=== PATIENT | female | born 1960 | race Caucasian/White ===

== ENCOUNTER 2023-04-21 13:44 | Emergency (ER) | payer MEDICARE ==
[~2023-04-21] VITALS: Ht 154.9 cm; Wt 79.4 kg
[2023-04-21 13:51] VITALS: BP 161/101
[2023-04-21] MEDS ORDERED: HYDR1TAB94 PO (14:55)
== END 2023-04-21 14:58 | disposition home or self-care (01) ==
LOC: ER 13:44
DX: S42.202A Unspecified fracture of upper end of left humerus, initial encounter for closed fracture (principal); W11.XXXA Fall on and from ladder, initial encounter
CPT/HCPCS: 73060; 99283-25; A9270

== ENCOUNTER 2024-01-06 08:38 | Day surgery (SDC) | payer MEDICARE ==
[2024-01-06] VITALS (15 sets, daily range): BP systolic 91–118; BP diastolic 64–98
[~2024-01-06] VITALS: Ht 152.4 cm; Wt 78.8 kg
[~2024-01-06 08:38] MED LIST: HYDR1TAB94 PO; Lactated Ringer's 1,000 ML IV SCH
[2024-01-06] MEDS ORDERED: propofoL 40 ML IV ONE (09:57)
--- NOTE | 2024-01-06 10:08 | NUR ---
01/06/24 Avel8 aJmes Nunes CONFIRMED AND REVIEWED H&P, MEDCICATIONS, ALLERGIES, MEDICAL HISTORY, RESPIRATORY HISTORY, VITAL SIGNS, 3-LEAD EKG, CONSENTS, AND PHYSICIAN ORDERS. PATIENT CONFIRMS NPO STATUS AND AGREES WITH SCHEDULED PROCEDURE. MONITOR INTACT WITH CONTINUOUS PULSE OXIMETRY, CAPNOGRAPHY, 3-LEAD EKG, INTERMITTENT BP. SUPPLEMENTAL O2 TO BE TITRATED THROUGHOUT PROCEDURE TO MAINTAIN O2 SATURATION ABOVE 90%. PATIENT DETERMINED TO BE ASA APPROPRIATE FOR PROPOFOL SEDATION PRIOR TO START OF PROCEDURE BY DR. SAUCEDO.
--- NOTE | 2024-01-06 10:57 | NUR ---
Patient up to Ambulate independently. Gait steady. Discharge instructions reviewed with patient. Patient verbalizes understanding. Copy given to patient to take home. Patient States Post-Procedure ride home has been arranged. Discharged via wheelchair to private car for ride home. PT TOLERATING PO, REPORTS READY TO GO HOME.
== END 2024-01-06 10:57 | disposition home or self-care (01) ==
LOC: ORSCMMR 08:38 → ORD 09:30 → ORSCMMR 10:57
PROVIDERS: Internal Medicine Gastroenterology
PROC: 0DBH8ZX Excision of Cecum, Via Natural or Artificial Opening Endoscopic, Diagnostic (ICD-10-PCS; principal; 2024-01-06 09:30)
PROC: 0DBK8ZX Excision of Ascending Colon, Via Natural or Artificial Opening Endoscopic, Diagnostic (ICD-10-PCS; principal; 2024-01-06 09:30)
DX: Z12.11 Encounter for screening for malignant neoplasm of colon (principal); D12.0 Benign neoplasm of cecum; D12.2 Benign neoplasm of ascending colon; K57.30 Diverticulosis of large intestine without perforation or abscess without bleeding; M62.89 Other specified disorders of muscle
CPT/HCPCS: 88305; J2704; J7120